=== PATIENT | female | born 1995 | race African-American/Black ===

== ENCOUNTER 2016-03-23 11:56 | Emergency (ER) | payer BC ==
[2016-03-23 12:15] VITALS: BMI 32.8
[2016-03-23 12:17] VITALS: BP 129/85; PULSE 86; TEMP 98.5
[2016-03-23] MEDS ORDERED: DEXAMETHASONE PF 10 MG/1 ML VIAL IM ONE (12:25)
[2016-03-23] MEDS ORDERED: CEPHALEXIN 500 MG CAP PO ONE (12:25)
--- NOTE | 2016-03-23 12:28 | EDPRACDOC ---
- General Information Chief Complaint: Skin Rash (not drug induced) Stated Complaint: COUGH/ RASH Time Seen by Provider: 03/23/16 12:19 Information Source: Patient Mode Of Arrival: Car Home Medications: Home Medications Cephalexin Monohydrate [Keflex] 500 mg PO Q6H #28 cap 03/23/16 Clobetasol Propionate/Emoll [Clobetasol Emollient 0.05% Crm] 60 gm TP BID #1 cream..g. 03/23/16 Allergies/Adverse Reactions: Allergies Allergy/AdvReac Type Severity Reaction Status Date / Time black pepper [From Proteolin] Allergy Hives* Verified 03/23/16 12:15 pineapple [From Proteolin] Allergy Hives* Verified 03/23/16 12:15 protein hydrolysate,milk Allergy Hives* Verified 03/23/16 12:15 [From Proteolin] turmeric [From Proteolin] Allergy Hives* Verified 03/23/16 12:15 - History of Present Illness Onset: 1 WK HPI: PT PRESENTS WITH ECZEMA OUTBREAK TO HER RIGHT FOREARM THAT BEGAN SEVERAL DAYS AGO. AREA HAS YELLOW/GREEN DRAINAGE. STATES IT ENGLE WHEN SHE PUTS HER OINTMENT ON IT. Rash Location: Reports: Arms Quality: Reports: Blisters, Painful, Red Known Exposure To: Reports: Other Relevant History of: Reports: None Irritability: Moderate Pain Severity: Moderate ED Past Medical History - History Reviewed Yes Nurses notes reviewed and agree except as marked - Patient Medical History Psychological History: Denies: Depression - Social Medical History Smoking Status: Never smoker EDM Review of Systems - Review of Systems ROS Negative Except as Marked: Yes All systems reviewed and were negative except as marked - Physical Exam Constitutional: Alert Oriented to: Time, Person, Place Last recorded Vital Signs: Last Vital Signs Temp 98.5 F 03/23/16 12:15 Pulse 86 03/23/16 12:15 Resp 20 03/23/16 12:15 BP 129/85 03/23/16 12:15 Pulse Ox 100 03/23/16 12:15 Oxygen Pulse Oxygen Saturation 100 O2 Device Oxygen Flow Rate Fraction of Inspired Oxygen ( FIO2) - HEENT Head: Normal ( normocephalic) Eye Exam: Normal (PERRL, EOMI, Sclera white) Oropharynx: Normal (Pharynx:Moist without exudate,Gums-no swelling) Tympanic Membrane: Normal Nose: No Symptoms Reported (septum midline) Neck: Normal (FROM, trachea at midline) - Respiratory/Cardiovascular Respiratory: Normal - CTA (BBS clear to auscultation without adventitious sounds ) Cardiovascular: Normal (RRR without murmur, gallop or rub) - GI Auscultation: Normal (NABS) Palpation: Normal (Soft,No rebound or guarding, non distended) Tenderness: Non tender Cunningham's Sign: Negative Rectal Exam: Deferred - Musculoskeletal Back: Normal (Non-Tender) Extremities: Normal (Normal tone, Pulses 2+ No cyanosis or edema, FROM) - Integumentary Skin: Normal, Warm, Dry, Rash (RED, BLISTER, DRAINAGE) Lymphatics: Normal (no adenopathy) - Neurologic Memory Impaired: Normal Motor Function: Normal (Normal tone, Pulses 2+ No cyanosis or edema, FROM) Cranial Nerve: Normal (CN II-X11 intact sensation, strength 5/5) Cerebellar: Normal Mood Description: Normal Perception: Normal - Differential Diagnosis Other Decision Time to Discharge: 12:32 - Departure Disposition: Home Condition: Stable Final Diagnosis: Eczema Qualifiers: Eczema type: unspecified Qualified Code(s): L30.9 - Dermatitis, unspecified Cellulitis Qualifiers: Site of cellulitis: extremity Site of cellulitis of extremity: upper extremity Laterality: right Qualified Code(s): L03.113 - Cellulitis of right upper limb Instructions: Eczema (ED), Cellulitis (ED) Education/Counseling Given To: Patient Education/Counseling Given Regarding: Diagnosis, Treatment, Prognosis, Follow Up Referrals: Cong Gregg II, MD [Staff Physician] - One Week Hua Price MD [Staff Physician] - One Week Prescriptions: Cephalexin Monohydrate [Keflex] 500 mg PO Q6H #28 cap Clobetasol Propionate/Emoll [Clobetasol Emollient 0.05% Crm] 60 gm TP BID #1 cream..g. Additional Instructions: INCREASE FLUID INTAKE. FOLLOW UP WITH PRIMARY CARE PROVIDER NEXT WEEK. TAKE ALL ANTIBIOTICS PRESCRIBED. RETURN TO THE ED FOR WORSENING SYMPTOMS OR CONCERNS.
== END 2016-03-23 13:48 | disposition home or self-care (01) ==
LOC: EDMC 11:56
DX: L30.9 Dermatitis, unspecified (principal); L03.113 Cellulitis of right upper limb
CPT/HCPCS: 96372; 99283; J1100; J3490

== ENCOUNTER 2016-04-15 23:22 | Emergency (ER) | payer BC ==
[2016-04-15 23:31] VITALS: BP 121/79; PULSE 70; TEMP 98.6; BMI 33.3
[2016-04-16] LABS: AUTOMATED BASOPHIL 0.3 % (0-2); AUTOMATED EOSINOPHIL 2.5 % (0-5); AUTOMATED LYMPH 49.5 % (17-44); AUTOMATED MONOCYTE 10.1 % (3-10); AUTOMATED NEUTROPHIL 37.6 % (45-76); MPV 9.5 fL (7.4-10.4)
[2016-04-16 00:02] LABS: LEUKOCYTES/URINE 2+ (NEGATIVE); NITRITE/URINE NEG (NEGATIVE); URINE OCCULT BLOOD 1+ (NEG/TRACE)
[2016-04-16 00:10] LABS: BLOOD UREA NITROGEN 10 MG/DL (7-17); CALCIUM 9.5 MG/DL (8.4-10.2); CALCULATED OSMOLALITY 266 MOs/Kg (270-290); CHLORIDE 103 mEq/L (98-107); GLUCOSE 75 mg/dL (70-99); SODIUM LEVEL 139 mEq/L (137-146); TOTAL PROTEIN 7.9 G/DL (6.3-8.2)
[2016-04-16] MEDS ORDERED: ONDANSETRON HCL 4 MG ODT TAB PO ONE (00:15)
[2016-04-16] MEDS ORDERED: METRONIDAZOLE 500 MG TAB PO ONE (00:16)
[2016-04-16] MEDS ORDERED: AZITHROMYCIN 250 MG TAB PO ONE (00:17)
--- NOTE | 2016-04-16 00:19 | EDPRACDOC ---
- General Information Chief Complaint: Female Urogenital Problems Stated Complaint: VAGINAL ITCHING Time Seen by Provider: 04/16/16 00:08 Information Source: Patient Mode of Arrival: Car Home Medications: Home Medications Cephalexin Monohydrate [Keflex] 500 mg PO Q6H #28 cap 03/23/16 Clobetasol Propionate/Emoll [Clobetasol Emollient 0.05% Crm] 60 gm TP BID #1 cream..g. 03/23/16 Allergies/Adverse Reactions: Allergies Allergy/AdvReac Type Severity Reaction Status Date / Time black pepper [From Proteolin] Allergy Hives* Verified 03/23/16 12:15 pineapple [From Proteolin] Allergy Hives* Verified 03/23/16 12:15 protein hydrolysate,milk Allergy Hives* Verified 03/23/16 12:15 [From Proteolin] turmeric [From Proteolin] Allergy Hives* Verified 03/23/16 12:15 - History of Present Illness Onset: [employer] vessel HPI: A FEW DAYS AGO STARTED WITH VAGINAL ITCHING AND LIGHT BLEEDING. SOME DYSURIA,. PT HAS ONE SEXUAL PARTNER. DENIES ABD PAIN. NO FEVER. NO OTHER COMPLAINTS. ED Past Medical History - History Reviewed Yes Nurses notes reviewed and agree except as marked - Patient Medical History Psychological History: Denies: Depression Systemic History: Denies: Cancer Surgical History: Denies: Hysterectomy - Social Medical History Smoking Status: Never smoker EDM Review of Systems - Review of Systems ROS Negative Except as Marked: Yes All systems reviewed and were negative except as marked Respiratory: No Symptoms Reported Cardiovascular: No Symptoms Reported Gastrointestinal: No Symptoms Reported Neurological: No Symptoms Reported Musculoskeletal: No Symptoms Reported - Physical Exam Constitutional: No apparent distress Oriented to: Time, Person, Place Last recorded Vital Signs: Last Vital Signs Temp 98.6 F 04/15/16 23:27 Pulse 70 04/15/16 23:27 Resp 20 04/15/16 23:27 BP 121/79 04/15/16 23:27 Pulse Ox 96 04/15/16 23:27 Oxygen Pulse Oxygen Saturation 96 O2 Device Room Air Oxygen Flow Rate Fraction of Inspired Oxygen ( FIO2) - HEENT Head: Normal Eye Exam: Normal Oropharynx: Normal - Results 04/15/16 23:32 04/15/16 23:32 WBC 5.7 xk/uL (3.8-10.8) 04/15/16 23:32 RBC 4.77 xM/uL (4.20-5.40) 04/15/16 23:32 Hgb 12.4 g/dL (12.0-16.0) 04/15/16 23:32 Hct 38.3 % (36-47) 04/15/16 23:32 MCV 80 fL (81-99) L 04/15/16 23:32 MCH 26.0 pg (27-32) L 04/15/16 23: MCHC 32.3 g/dl (33-36) L 04/15/16 23:32 RDW 15.5 % (11.5-14.5) H 04/15/16 23:32 Plt Count 278 xk/uL (130-400) 04/15/16 23: MPV 9.5 fL (7.4-10.4) 04/15/16 23:32 Neut % (Auto) 37.6 % (45-76) L 04/15/16 23: Lymph % (Auto) 49.5 % (17-44) H 04/15/16 23: [place] % (Auto) 10.1 % (3-10) H 04/15/16 23: Eos % (Auto) 2.5 % (0-5) 04/15/16: Baso % (Auto) 0.3 % (0-2) 04/15/16 23:32 Absolute Neuts (auto) 2.11 xk/uL (1.7-8.2) 04/15/16 23: Absolute Lymphs (auto) 2.79 xk/uL (0.65-4.75) 04/15/16 23:32 Urine Color Yellow 04/15/16 23:30 Urine Clarity Hazy 04/15/16 23:30 Urine pH 5.0 (5.0-8.0) 04/15/16 23:30 Ur Specific [place] 1.030 (1.003-1.035) 04/15/16 23:30 Urine Protein Neg (NEG/TRACE) 04/15/16 23:30 Urine Glucose (UA) Neg (NEGATIVE) 04/15/16 23: Urine Ketones 1+ (NEGATIVE) H 04/15/16 23: Urine Occult Blood 1+ (NEG/TRACE) H 04/15/16 23:30 Urine Nitrite Neg (NEGATIVE) 04/15/16 23:30 Urine Bilirubin Neg (NEGATIVE) 04/15/16 23:30 Urine Urobilinogen <2.0 MG/DL (0-1) 04/15/16 23:30 Ur Leukocyte Esterase 2+ (NEGATIVE) H 04/15/16 23:30 Urine WBC 5-10 (0-5) H 04/15/16 23:30 Ur Epithelial Cells Occ 04/15/16 23:30 Urine Bacteria Few (NEG/FEW) 04/15/16 23:30 Urine Mucus Sm amt (NEG/OCC) 04/15/16 23:30 Urine Trichomonas Occ (NONE) H 04/15/16 23:30 Urine Test Neg (NEGATIVE) 04/15/16 23:30 Lab Results 04/15/16 04/15/16 04/15/16 23:32 23:30 23:30 WBC 5.7 RBC 4.77 Hgb 12.4 Hct 38.3 MCV 80 L MCH 26.0 L MCHC 32.3 L RDW 15.5 H Plt Count 278 MPV 9.5 Neut % (Auto) 37.6 L Lymph % (Auto) 49.5 H [place] % (Auto) 10.1 H Eos % (Auto) 2.5 Baso % (Auto) 0.3 Absolute Neuts (auto) 2.11 Absolute Lymphs (auto) 2.79 Urine Color Yellow Urine Clarity Hazy Urine pH 5.0 Ur Specific [place] 1.030 Urine Protein Neg Urine Glucose (UA) Neg Urine Ketones 1+ H Urine Occult Blood 1+ H Urine Nitrite Neg Urine Bilirubin Neg Urine Urobilinogen <2.0 Ur Leukocyte Esterase 2+ H Urine WBC 5-10 H Ur Epithelial Cells Occ Urine Bacteria Few Urine Mucus Sm amt Urine Trichomonas Occ H Urine Test Neg - Departure Yes I personally saw and evaluated the patient. Disposition: Eloped Condition: Stable Final Diagnosis: Trichomonal vaginitis Instructions: Trichomoniasis (ED) Education/Counseling Given To: Patient Education/Counseling Given Regarding: Diagnosis, Treatment Referrals: None,No Provider [Primary Care Provider] - One Week Prescriptions: No Action Cephalexin Monohydrate [Keflex] 500 mg PO Q6H #28 cap Clobetasol Propionate/Emoll [Clobetasol Emollient 0.05% Crm] 60 gm TP BID #1 cream..g. Additional Instructions: HIV TESTING AT THE [facility]
[2016-04-16] MEDS ORDERED: CEFTRIAXONE 250 MG VIAL IM ONE (00:30)
[2016-04-16] MEDS ORDERED: LIDOCAINE 1% 2 ML (METHYLPARABEN FREE) ONE (01:01)
== END 2016-04-16 01:30 | disposition left against medical advice (07) ==
LOC: ED 23:22
DX: A59.01 Trichomonal vulvovaginitis (principal); R30.0 Dysuria
CPT/HCPCS: 36415; 80053; 81001; 81025; 83690; 85025; 87086; 99282; J3490; J0696; J2001